=== PATIENT | male | born 1955 | race Caucasian/White ===

== ENCOUNTER → 2020-11-05 | Day surgery (SDC) | payer OTHER ==
[~2020-11-05] MED LIST: ALDACTONE100 MG PO; AMLODIPINE BESY10 MG PO; ASPIRIN EC81 MG PO; CONSTULOSE10 GM/15 M PO; CULTURELLE1 EAC1 PO; DAILY MULTIPLE1 EAC1 PO; FEOSOL325 MG PO; FLOMAX0.4 MG PO; FUROSEMIDE20 MG PO; GLUCOPHAGE XR500 MG PO; HYDROCHLOROTH12.5 MG PO; JARDIANCE10 MG PO; KLOR-CON M2020 MEQ PO; LISINOPRIL5 MG PO; MAG-OX 400 TAB400 MG PO; MIDODRINE HCL10 MG PO; OMEPRAZOLE20 M2 PO; PREVACID30 MG PO; SIMVASTATIN10 MG PO; SLOW-MAG71.5 MG PO; XIFAXAN550 MG PO; ZOFRAN 4 MG TAB4 MG PO
== END | disposition home or self-care (01) ==
LOC: OR 07:05
DX: K76.6 Portal hypertension (principal); K70.31 Alcoholic cirrhosis of liver with ascites; K31.89 Other diseases of stomach and duodenum; I10 Essential (primary) hypertension; E78.5 Hyperlipidemia, unspecified; K72.90 Hepatic failure, unspecified without coma; E11.9 Type 2 diabetes mellitus without complications; D64.9 Anemia, unspecified; F10.10 Alcohol abuse, uncomplicated; K21.9 Gastro-esophageal reflux disease without esophagitis; Z87.891 Personal history of nicotine dependence; Z79.84 Long term (current) use of oral hypoglycemic drugs; Z79.82 Long term (current) use of aspirin; Z79.899 Other long term (current) drug therapy
CPT/HCPCS: 82962; J2704; J7040

== ENCOUNTER → 2022-05-14 | Day surgery (SDC) | payer OTHER ==
[~2022-05-14] MED LIST changes: +ARNUITY ELLIPT50 MCG INH; +LANTUS100 UNIT/1 SQ; +LOVAZA1 GM PO; +MAG DELAY64 M1 PO; +PROAIR HFA8.5 GM INH; +TYLENOL EXTRA500 MG PO; +ZETIA10 MG PO
== END | disposition home or self-care (01) ==
LOC: OR 11:01
DX: C34.92 Malignant neoplasm of unspecified part of left bronchus or lung (principal); I10 Essential (primary) hypertension; E11.9 Type 2 diabetes mellitus without complications; Z87.891 Personal history of nicotine dependence
CPT/HCPCS: 82962; J2704

== ENCOUNTER → 2022-05-20 | Outpatient (CLI) | payer OTHER | LOC: HEART 5 10:53 | DX: C34.12 Malignant neoplasm of upper lobe, left bronchus or lung (principal) | CPT/HCPCS: 94060; 94729 ==

== ENCOUNTER → 2022-05-21 | Outpatient (CLI) | payer OTHER | LOC: EMI 10:27 | DX: R91.1 Solitary pulmonary nodule (principal); H70.91 Unspecified mastoiditis, right ear | CPT/HCPCS: 70553; A9577 ==

== ENCOUNTER → 2022-06-08 | Day surgery (SDC) | payer OTHER | END | disposition home or self-care (01) | LOC: OR 07:24 | DX: C34.12 Malignant neoplasm of upper lobe, left bronchus or lung (principal); I10 Essential (primary) hypertension; E78.00 Pure hypercholesterolemia, unspecified; J44.9 Chronic obstructive pulmonary disease, unspecified; E11.9 Type 2 diabetes mellitus without complications; Z87.891 Personal history of nicotine dependence; Z79.4 Long term (current) use of insulin; Z79.82 Long term (current) use of aspirin; Z79.899 Other long term (current) drug therapy; Z72.89 Other problems related to lifestyle | CPT/HCPCS: 77001; 82962; C1769; C1788; J0690; J1100; J1642; J2001; J2405; J2704; J3010; J7040 ==